=== PATIENT | female | born 2000 | race Caucasian/White ===

== ENCOUNTER 2023-01-04 07:26 | Outpatient (CLI) | payer OTHER, SELFPAY ==
--- NOTE | ~2023-01-04 | US_ITS ---
EXAMINATION: US OB /maternal detail DATE: 01/04/2023 08:52 INDICATION: anatomic survey. TECHNIQUE: Real-time ultrasound of the pelvis was performed. COMPARISON: None. FINDINGS: There is a single living fetus in vertex presentation. The placenta is posterior, 7.8 cm from the ce rvix. heart rate is 147 beats per minute (bpm). The amniotic fluid volume is subjectively mayra l. The cervical length is 3.8 cm on transabdominal images, which is normal. The following biometric data were obtained: Biparietal diameter (BPD): 4.8 cm; head circumference (HC): 17.1 cm; abdominal circumference (AC): 13 .9 cm; femur length (FL): 2.8 cm. These measurements are concordant. Estimated weight is 270 g +/- 40 g, which correlates with the 73rd percentile when 06/03/23 is u sed as estimated date of delivery. As single measurements, these parameters are each equal to the following estimated gestational ages: BPD: 20 weeks 3 days. HC: 19 weeks 5 days. AC: 19 weeks 2 days. FL: 18 weeks 3 days. estimated gestational age based solely on measurements from this exam is 19 weeks 3 days +/- 1 weeks 3 days. The cerebral ventricles, cerebellum, cisterna magna, nuchal fold, lip, and visualized portions of the spine are normal. The heart is normal. The diaphragm, stomach, kidneys, and bladder are normal. Ther e are two umbilical arteries to yield a 3-vessel cord. The cord insertion is normal. IMPRESSION: 1. Single living fetus in vertex presentation. 2. Estimated weight is 270 g +/- 40 g, which correlates with the 73rd percentile when 06/03/23 is used as estimated date of delivery. 3. Normal anatomic survey. Reviewed, dictated and finalized at location A. IMPRESSION: 1. Single living fetus in vertex presentation. 2. Estimated weight is 270 g +/- 40 g, which correlates with the 73rd pe rcentile when 06/03/23 is used as estimated date of delivery. 3. Normal anatomic survey.
== END 2023-01-04 07:27 ==
PROVIDERS: PCP Advanced Practice Midwife; Visit Provider Advanced Practice Midwife
DX: Z36.9 Encounter for antenatal screening, unspecified (principal)
CPT/HCPCS: 76805

== ENCOUNTER 2023-04-08 08:30 | Outpatient (CLI) | payer OTHER, SELFPAY ==
[2023-04-08] VITALS (8 sets, daily range): BP systolic 115–129; BP diastolic 64–79; PULSE 66–85
[2023-04-08 09:08] LABS: Basophils Percent Auto 0.2 % (0.2-1.2); Eosinophils Absolute Auto 0.1 K/mm3 (0-0.3); Eosinophils Percent Auto 1.1 % (0-4.4); Hematocrit 31.9 % (37.0-47.0); Hemoglobin 10.8 g/dL (12.0-15.0); Immature Granulocyte Absolute 0.04 K/mm3 (0.00-0.031); Immature Granulocyte Percent A 0.4 % (0-0.5); Lymphocytes Absolute Auto 0.82 K/mm3 (0.9-3.2); Lymphocytes Percent Auto 8.8 % (18.3-44.2); Mean Corpuscular HGB Conc 33.9 g/dl (32-36); Mean Corpuscular Hemoglobin 29.8 pg (26-34); Mean Corpuscular Volume 88.1 fl (80-100); Mean Platelet Volume 10.1 fl (7.4-10.4); Monocytes Absolute Auto 0.5 K/mm3 (0.1-0.6); Monocytes Percent Auto 5.7 % (2.6-8.5); Neutrophils Absolute Auto 7.8 K/mm3 (1.3-6.7); Neutrophils Percent Auto 83.8 % (45.5-73.1); Platelet Count Result 157 k/mm3 (150-375); Red Blood Count 3.62 M/mm3 (4.2-5.4); Red Cell Distribution Width 13.4 % (11.5-14.5); White Blood Count 9.4 K/mm3 (4.5-10.0)
[2023-04-08 09:20] LABS: Alanine Aminotransferase 29 U/L (6-35); Albumin Level 3.6 g/dL (3.5-5.1); Alkaline Phosphatase 87 U/L (38-126); Anion Gap 5 mmol/L (8-16); Aspartate Amino Transferase 25 U/L (14-36); Bilirubin,Total 0.4 mg/dL (0.2-1.3); Blood Urea Nitrogen 6 mg/dL (7-17); Calcium 8.6 mg/dL (8.4-10.2); Carbon Dioxide 23 mmol/L (22-30); Chloride 106 mmol/L (98-107); Estimated Glomerular Filt Rate > 60; Glucose 98 mg/dL (65-110); Potassium 3.4 mmol/L (3.4-5.0); Sodium 134 mmol/L (137-145); Uric Acid 3.7 mg/dL (2.5-7.5)
[2023-04-08 09:46] LABS: Appearance Urine Clear (Clear); Bilirubin Urine Negative (Negative); Blood Urine Negative (Negative); Color Urine Light Yellow (Yellow); Glucose Urine UA Negative (Negative); Ketones Urine Negative (Negative); Leukocyte Esterase Ur Trace LEU/UL (NEGATIVE); Nitrate Urine Negative (Negative); Protein Urine Negative (Negative); Specific Grav Ur <= 1.005 (1.001-1.035); Urobilinogen Urine 0.2 mg/dL (<2.0); pH Urine 5.5 (5.0-9.0)
[2023-04-08 10:07] LABS: Creatinine Urine 12.5 mg/dL; Total Protein Urine Random 16 mg/dL; Ur Ttl Prot Creatinine Ratio 1.28 mg/mg (0-0.20)
[2023-04-08 10:15] LABS: Bacteria Urine None Seen /hpf; Need Manual Microscopic Reviewed; Non Pathogenic Casts 0-2; RBC Urine 0-2 /hpf (0-2); Squamous Epithelial Cell Urine Moderate /hpf (Few)
[2023-04-08 10:28] LABS: Add Urine Microscopic? YES
== END 2023-04-08 10:40 | disposition home or self-care (01) ==
LOC: ANHOBOP 08:41 → ANHOBPP 08:42
PROVIDERS: Visit Provider Obstetrics & Gynecology Gynecology
DX: O13.9 Gestational [pregnancy-induced] hypertension without significant proteinuria, unspecified trimester (principal); Z3A.00 Weeks of gestation of pregnancy not specified
CPT/HCPCS: 36415; 59025; 80053; 81001; 82570; 84156; 84550; 85025; 87086; 99199

== ENCOUNTER 2023-04-09 12:13 | Outpatient (CLI) | payer OTHER, SELFPAY ==
[2023-04-09 12:13] VITALS: BMI 31.3
[2023-04-09 12:58] LABS: Collection Time Urine 24 HOURS
[2023-04-09 13:04] LABS: Total Volume 24 Hour Urine 3700 ml
[2023-04-09 13:05] LABS: Specific Gravity Ur 1.015; Total Volume 24 Hour Urine 3700 ml
[2023-04-09 13:07] LABS: Creatinine Clearance Urine 164.2 ml/min (75-125); Creatinine Urine 43.6 mg/dL; Patient Weight 194 Lbs
[2023-04-09 13:12] LABS: Total Protein Urine 24 Hr 629 mg/24hr (28-141); Total Protein Urine Random 17 mg/dL
== END 2023-04-09 12:14 | disposition home or self-care (01) ==
LOC: ANHOBOP 12:20
PROVIDERS: Visit Provider Obstetrics & Gynecology Gynecology
DX: O26.899 Other specified pregnancy related conditions, unspecified trimester (principal); R03.0 Elevated blood-pressure reading, without diagnosis of hypertension
CPT/HCPCS: 81050; 82575; 84156

== ENCOUNTER → 2023-04-11 13:16 | Outpatient (CLI) | payer OTHER, SELFPAY ==
--- NOTE | ~2023-04-11 | US_ITS ---
EXAMINATION: US OB follow up DATE: 04/11/2023 14:04 INDICATION: Preeclampsia TECHNIQUE: Real-time transabdominal obstetric ultrasound. FINDINGS: Comparison ultrasound dated 01/04/2023 There is a single living fetus in vertex presentation. The placenta is posterior/fundal without plac enta previa. cardiac activity and movement is noted with a heart rate of 132 beats per minute. T he amniotic fluid volume is normal. MARTELL measures 18.2 cm. The following biometric data were obtained: BPD: 84mm corresponds to gestational age 33 weeks 6 days. Head circumference: 302mm corresponds to gestational age 33 weeks 4 days. Abdominal circumference: 292mm corresponds to gestational age 33 weeks 1 days. Femur length: 62mm corresponds to gestational age 31 weeks 6 days. Estimated weight: 2075grams +/- 311grams, 30%.] IMPRESSION: 1. Single living intrauterine in vertex presentation with an estimated gestational age of 33 weeks 2 days by inititial ultrasound. Appropriate interval growth. 2. Normal placenta. Reviewed, dictated and finalized at location A. IMPRESSION: 1. Single living intrauterine in vertex presentation with an estimat ed gestational age of 33 weeks 2 days by inititial ultrasound. Appropriate int erval growth. 2. Normal placenta.
== END ==
PROVIDERS: PCP Obstetrics & Gynecology Gynecology; Visit Provider Obstetrics & Gynecology Gynecology
DX: O14.03 Mild to moderate pre-eclampsia, third trimester (principal); Z3A.33 33 weeks gestation of pregnancy
CPT/HCPCS: 76816

== ENCOUNTER 2023-04-25 08:24 | Outpatient (RCR) | payer OTHER, SELFPAY ==
[2023-04-22 11:02] VITALS: BP 120/70; PULSE 77
--- NOTE | ~2023-04-25 | US_ITS ---
EXAMINATION: US OB limited w BPP DATE: 04/22/2023 10:46 CDT INDICATION: Biophysical profile. Evaluate well-being. TECHNIQUE: Real-time transabdominal obstetric ultrasound. FINDINGS: No prior studies for comparison. There is a single living fetus in vertex presentation. The placenta is posterior without placenta pr evia. cardiac activity and movement is noted with a heart rate of 139 beats per minute. Biophysical profile: breathin of 2 movement: 2 of 2 tone: 2 of 2 Amniotic flud pocket: 2 of 2 Total score: 8 of 8 IMPRESSION: 1. Single living intrauterine in vertex presentation. 2: Total biophysical profile score of 8/8. Reviewed, dictated and finalized at location L.
--- NOTE | ~2023-04-25 | US_ITS ---
EXAMINATION: US OB limited w BPP, US umbilical doppler DATE: 04/25/2023 11:30 CDT INDICATION: decelerations. TECHNIQUE: Real-time transabdominal obstetric ultrasound. FINDINGS: No prior studies for comparison. There is a single living fetus in vertex presentation. The placenta is fundal/posterior without plac enta previa. cardiac activity and movement is noted with a heart rate of 141 beats per minute. Biophysical profile: breathin of 2 movement: 2 of 2 tone: 2 of 2 Amniotic flud pocket: 2 of 2 Total score: 8 of 8 Umbilical artery pulsed Doppler demonstrates peak systolic to end-diastolic velocity ratios (S/D rati os) 2.5 (5th percentile = 2.0, 95th percentile = 3.4). IMPRESSION: 1. Single living intrauterine in vertex presentation. 2: Total biophysical profile score of 8/8. 3: Normal umbilical Doppler ratios. Reviewed, dictated and finalized at location B. IMPRESSION: 1. Single living intrauterine in vertex presentation. 2: Total biophysical profile score of 8/8. 3: Normal umbilical Doppler ratios.
[2023-04-25 11:48] VITALS: BP 137/84; PULSE 84
== END 2023-05-15 11:32 | disposition home or self-care (01) ==
LOC: ANHOBOP 08:24
PROVIDERS: PCP Obstetrics & Gynecology Gynecology; Visit Provider Obstetrics & Gynecology Gynecology
DX: O26.893 Other specified pregnancy related conditions, third trimester (principal); Z3A.34 34 weeks gestation of pregnancy; O14.93 Unspecified pre-eclampsia, third trimester; Z3A.35 35 weeks gestation of pregnancy
CPT/HCPCS: 59025; 76815; 76819; 76820

== ENCOUNTER 2023-05-01 10:15 | Outpatient (CLI) | payer OTHER, SELFPAY ==
--- NOTE | ~2023-05-01 | US_ITS ---
EXAMINATION: US OB follow up DATE: 05/01/2023 10:43 INDICATION: Preeclampsia, third trimester TECHNIQUE: Real-time ultrasound of the pelvis was performed. The interpreting radiologist was not pre sent for the study. COMPARISON: 04/25/2023 FINDINGS: There is a single living fetus in vertex presentation. The placenta is posterior/fundal. Th e measured cervical length is 4.4 cm. cardiac activity and movement are noted. hear t rate is 136 beats per minute (bpm). The amniotic fluid index is 14.4 cm which is normal (normal ran ge: 7.7 cm to 24.9 cm). The following biometric data were obtained: Biparietal diameter (BPD): 8.9 cm; head circumference (HC): 33.4 cm; abdominal circumference (AC): 32 .8 cm; femur length (FL): 6.9 cm. These measurements are concordant. Estimated weight is 2962 g +/- 244 g, which correlates with the 63rd percentile when 05/28/2023 is used as estimated date of delivery. As single measurements, these parameters are each equal to the following estimated gestational ages w ith ranges of +/- 2 standard deviations: BPD: 36 weeks 2 days ( 33 weeks 1 days - 39 weeks 3 days). HC: 38 weeks 1 days ( 35 weeks 3 days - 40 weeks 6 days). AC: 36 weeks 5 days ( 33 weeks 5 days - 39 weeks 5 days). FL: 35 weeks 4 days ( 32 weeks 4 days - 38 weeks 4 days). estimated gestational age based solely on measurements from this exam is 36 weeks 5 days +/- 2 weeks 4 days. IMPRESSION: 1. Single living fetus in vertex presentation. 2. Normal amniotic fluid index. 3. Estimated weight is 2962 g +/- 244 g, which correlates with the 63rd percentile when 023 is used as estimated date of delivery. Reviewed, dictated and finalized at location A. IMPRESSION: 1. Single living fetus in vertex presentation. 2. Normal amniotic fluid index. 3. Estimated weight is 2962 g +/- 244 g, which correlates with the 63rd p ercentile when 05/28/2023 is used as estimated date of delivery.
== END 2023-05-01 10:16 ==
PROVIDERS: PCP Advanced Practice Midwife; Visit Provider Advanced Practice Midwife
DX: O14.03 Mild to moderate pre-eclampsia, third trimester (principal); Z3A.36 36 weeks gestation of pregnancy
CPT/HCPCS: 76816

== ENCOUNTER 2023-05-13 18:59 | Inpatient (IN) | payer OTHER, SELFPAY ==
[2023-05-13] VITALS (15 sets, daily range): BP systolic 119–146; BP diastolic 75–92; PULSE 72–97; TEMP 36.6
[2023-05-13 19:49] LABS: Basophils Percent Auto 0.3 % (0.2-1.2); Eosinophils Absolute Auto 0.1 K/mm3 (0-0.3); Eosinophils Percent Auto 0.6 % (0-4.4); Hematocrit 33.6 % (37.0-47.0); Hemoglobin 11.6 g/dL (12.0-15.0); Immature Granulocyte Absolute 0.05 K/mm3 (0.00-0.031); Immature Granulocyte Percent A 0.5 % (0-0.5); Lymphocytes Absolute Auto 1.31 K/mm3 (0.9-3.2); Lymphocytes Percent Auto 12.6 % (18.3-44.2); Mean Corpuscular HGB Conc 34.5 g/dl (32-36); Mean Corpuscular Hemoglobin 29.3 pg (26-34); Mean Corpuscular Volume 84.8 fl (80-100); Mean Platelet Volume 10.9 fl (7.4-10.4); Monocytes Absolute Auto 0.7 K/mm3 (0.1-0.6); Monocytes Percent Auto 6.9 % (2.6-8.5); Neutrophils Absolute Auto 8.2 K/mm3 (1.3-6.7); Neutrophils Percent Auto 79.1 % (45.5-73.1); Platelet Count Result 184 k/mm3 (150-375); Red Blood Count 3.96 M/mm3 (4.2-5.4); Red Cell Distribution Width 13.6 % (11.5-14.5); White Blood Count 10.4 K/mm3 (4.5-10.0)
--- NOTE | 2023-05-13 19:49 | OBPPTRN ---
Patient transferred to post room # via ( ). Support person present. Oriented to unit, room, information board, rooming in, admission packet and security measures. Patient verbalizes understanding.
[2023-05-13 20:02] LABS: Alanine Aminotransferase 29 U/L (6-35); Albumin Level 4.1 g/dL (3.5-5.1); Alkaline Phosphatase 99 U/L (38-126); Anion Gap 11 mmol/L (8-16); Aspartate Amino Transferase 24 U/L (14-36); Bilirubin,Total 0.4 mg/dL (0.2-1.3); Blood Urea Nitrogen 10 mg/dL (7-17); Carbon Dioxide 21 mmol/L (22-30); Chloride 105 mmol/L (98-107); Estimated Glomerular Filt Rate > 60; Glucose 92 mg/dL (65-110); Potassium 3.5 mmol/L (3.4-5.0); Sodium 137 mmol/L (137-145); Uric Acid 5.3 mg/dL (2.5-7.5)
[2023-05-13] MEDS: miSOPROStol 25 MCG TABLET SUBLINGUAL (20:43)
[2023-05-14] VITALS (196 sets, daily range): BP systolic 95–160; BP diastolic 51–128; PULSE 25–191; RESP 18; TEMP 36.5–38.1; O2SAT 75–100
[2023-05-14] MEDS: miSOPROStol 25 MCG TABLET SUBLINGUAL (00:57)
[2023-05-14] MEDS: LACTATED RINGERS 1,000 ML 125 ML IV CONT ×4 (05:00→18:07)
[2023-05-14] MEDS: OXYTOCIN 30 UNITS/NS 500 ML 30 UNITS/500 ML BAG IV CONT (05:02)
--- NOTE | 2023-05-14 07:13 | WPDOBADMIT ---
Obstetrics - Admit Note Admission Note: record reviewed. No pertinent additions to the history and/or any subsequent changes in the physical findings that are not consistent with the expected course of the were found. Additions to the history and/or subsequent changes in the physical findings follow. None.
--- NOTE | 2023-05-14 07:13 | PM.OBPNLAB ---
Pain Control Date/time seen: 05/14/23 07:05 Pain control: tolerating well Comments: feeling occasional contractions q 5-10 minutes. Pelvic Exam Dilation (cm): 3 Effacement (%): 50 station: -3 Amniotic membrane status: Intact Comments: head well applied to cervix Contractions Monitor mode: External Contraction pattern: Irregular Contraction intensity: Moderate (mild/mod) Status status: Category ll Comments: Baseline 135, mod variability, + accelerations. Variable deceleration. Reassuring tracing. Assessment and Plan Pitocin rate (mU/min): 6 Assessment: induction ongoing Comments: CNM to bedside. Discussed plan of care an option for amniotomy. Discussed risks, benefits, and expectations of breaking water. Patient is agreeable. Amniotomy performed and there was a moderate return of clear amniotic fluid. Patient tolerated procedure well. Will start Ampicillin for GBS prophylaxis given unknown status at this time. All BPs normal to mild range, CBC/CMP stable. Vernell does report a headache but states she did not sleep much last night. She is drinking some caffeinated soda. Recommend Tylenol if FELICIANO unrelieved. No visual changes, RUQ pain, or change in edema. Anticipate vaginal . Dr. Cam updated.
[2023-05-14] MEDS: AMPICILLIN 2 GM/NS 100 ML 2 GM/100 ML BAG IVPB (07:37)
[2023-05-14] MEDS: fentaNYL CITRATE INJ (*CRX) 100 MCG/2 ML VIAL 50 MCG IV PUSH ×2 (08:44→09:16)
--- NOTE | 2023-05-14 09:47 | WPDANESEPP ---
Anes - Eval Pre Procedure Procedure: Labor Epidural Date/Time: 05/14/23 09:47 Surgeon: Dorina Preop Diagnosis: Labor Pain Pre Op Diagnosis: IOL Patient Data Age: 23 Gender: F Height: Weight: Last Vital Signs Temp 36.6 C 05/14/23 08:30 Pulse 73 05/14/23 09:45 BP 131/77 05/14/23 09:45 Pulse Ox 100 05/14/23 09:45 Allergies Allergy/AdvReac Type Severity Reaction Status Date / Time No Known Allergies Allergy Verified 05/06/23 14:32 Home Medications Medication Instructions Recorded Confirmed Type calcium-magnesium 217 mg-117 mg 2 tablet PO DAILY 04/08/23 05/06/23 History tablet ferrous sulfate 27 mg iron tablet 27 mg PO TID 04/08/23 05/06/23 History vit no.133-ferrous 1 tablet PO DAILY 04/08/23 05/06/23 History fumarate 28 mg-folic acid 800 mcg tablet () aspirin 81 mg chewable tablet 81 mg PO DAILY 04/25/23 05/06/23 History ergocalciferol (vitamin D2) 1,250 50,000 unit PO WEEKLY 04/25/23 05/06/23 History mcg (50,000 unit) capsule Laboratory Tests 05/13/23 19:27 WBC 10.4 H K/mm3 (4.5-10.0) RBC 3.96 L M/mm3 (4.2-5.4) Hgb 11.6 L g/dL (12.0-15.0) Hct 33.6 L % (37.0-47.0) MCV 84.8 fl (80-100) MCH 29.3 pg (26-34) MCHC 34.5 g/dl (32-36) RDW 13.6 % (11.5-14.5) Plt Count 184 k/mm3 (150-375) MPV 10.9 H fl (7.4-10.4) Immature Gran % (Auto) 0.5 % (0-0.5) Neut % (Auto) 79.1 H % (45.5-73.1) Lymph % (Auto) 12.6 L % (18.3-44.2) [place] % (Auto) 6.9 % (2.6-8.5) Eos % (Auto) 0.6 % (0-4.4) Baso % (Auto) 0.3 % (0.2-1.2) Lymph # (Auto) 1.31 K/mm3 (0.9-3.2) [place] # (Auto) 0.7 H K/mm3 (0.1-0.6) Eos # (Auto) 0.1 K/mm3 (0-0.3) Baso # (Auto) 0.0 K/mm3 (0.0-0.1) Abs Immat Gran (auto) 0.05 H K/mm3 (0.00-0.031) Absolute Neuts (auto) 8.2 H K/mm3 (1.3-6.7) Absolute Nucleated RBC 0.0 K/mm3 (0.0-0.012) Nucleated RBC % 0.0 % (0.0-0.2) Sodium 137 mmol/L (137-145) Potassium 3.5 mmol/L (3.4-5.0) Chloride 105 mmol/L (98-107) Carbon Dioxide 21 L mmol/L (22-30) Anion Gap 11 mmol/L (8-16) BUN 10 mg/dL (7-17) Creatinine 0.70 mg/dL (0.7-1.0) Estim Creat Clear Calc Not Reportable Estimated GFR > 60 (59 - ) Glucose 92 mg/dL (65-110) Uric Acid 5.3 mg/dL (2.5-7.5) Calcium 10.0 mg/dL (8.4-10.2) Total Bilirubin 0.4 mg/dL (0.2-1.3) AST 24 U/L (14-36) ALT 29 U/L (6-35) Alkaline Phosphatase 99 U/L (38-126) Total Protein 8.0 g/dL (6.3-8.2) Albumin 4.1 g/dL (3.5-5.1) RPR Pending Blood Type O Positive Antibody Screen Negative : gestational age ([place] 06/03/23) Patient hx anesthesia problems: none Family hx anesthesia problems: none Results Review: All pre-operative results and documents have been reviewed as part of the pre-operative evaluation. [facility] Family History Family History Other Unknown family medical history Social History Social History Smoking status: Never smoker Substance use: never Lack of Transportation: No Lack of Food: Never True Current Housing: I Have Housing Concerned About Future Housing: No Difficulty Paying Gas/Electric Bills: No Difficulty Paying for Meds: No Currently Unemployed: No Education: Associate Degree Difficulty w/ Childcare or Family Care: No Spiritual care concerns: No Exam Day of Procedure 05/14/23 09:47 Patient weight: normal Heart: regular rate and rhythm Lungs: normal air movement Airway: Mallampati scale class II Neurological: alert and oriented
[2023-05-14] MEDS: ONDANSETRON INJ 4 MG/2 ML VIAL IV PUSH (13:38)
[2023-05-14 14:39] LABS: Rapid Plasma Reagin Non-Reactive (NonReactive)
--- NOTE | 2023-05-14 17:39 | PM.OBPNLAB ---
Pain Control Date/time seen: 05/14/23 17:35 Pain control: tolerating well and epidural Comments: feeling some rectal pressure. Pelvic Exam Dilation (cm): 10 Effacement (%): 100 station: +2 Amniotic membrane status: Ruptured Contractions Monitor mode: Internal Contraction pattern: Irregular Contraction intensity: Moderate (mild/mod) Status status: Category ll Comments: 130 baseline, moderate variability Assessment and Plan Comments: Plan to begin pushing with contractions.
--- NOTE | 2023-05-14 19:11 | P.PCNOB_ITS ---
OB - Vaginal Delivery Note Procedure Delivery date: 05/14/23 Events: Preeclampsia w/o severe features Induction method: Per Misoprostol Protocol Delivery augmentation: Rupture of Membranes Delivery monitor: External FHT and Internal Uterine Route of delivery: Episiotomy description: None Laceration Description: Periurethral and Vaginal Delivery repair: vicryl Specimen: Yes Quantitative Blood Loss (ml): 250 Anesthesia type: Epidural Disposition: Floor Complications: No immediate complications Narrative: Vernell Arrived for induction of labor secondary to preeclampsia. She received 2 doses of Cytotec followed by Pitocin. Amniotomy was performed and she progressed to complete dilation. She pushed very well with contractions and brought the head moved completely removed. After the delivery of the head, a loose nuchal cord was identified. With the next push she easily delivered the anterior and posterior shoulders followed by the remainder of the . The infant was delivered in a somersault maneuver after which the nuchal cord was reduced. The was placed on maternal abdomen and dried and stimulated by the nursery staff. After 1 minute of life, the cord was doubly clamped and cut. Cord blood, cord gases, and cord segment were obtained. There was excellent hemostasis. Uterine tone remained firm, and all delivery counts were correct. Mother and baby skin to skin the delivery room. [place] Baby Date of : 05/14/23 Time of : 18:36 Weeks of gestation at delivery: 37 gender: Male Weight (pounds): 0 (weight not available at the time of this note) presentation: vertex position: Left Occiput Anterior Placenta delivery description: Spontaneous and Normal Configuration Cord Vessel Description: 3 Vessels, Nuchal Cord, Tight and Delayed Cord Clamping score one minute: 8 score five minutes: 9
[2023-05-14] MEDS: OXYTOCIN 30 UNITS/NS 500 ML 30 UNITS/500 ML BAG 125 UNITS IV CONT (19:15)
--- NOTE | 2023-05-14 19:17 | PM.OBDSVD ---
DS: Admitting Diagnosis Discharge Date 05/16/2023 Admitting Diagnosis 23 y.o. at 37 weeks IOL for preeclmapsia anemia DS: Discharge Diagnosis Discharge Diagnosis (1) Preeclampsia: Code(s): O14.90 - Unspecified pre-eclampsia, unspecified trimester Status: Acute (2) (normal spontaneous vaginal delivery): Code(s): O80 - Encounter for full-term uncomplicated delivery Status: Acute (3) Mother currently breast-feeding: Code(s): Z39.1 - Encounter for care and examination of lactating mother Status: Acute OB - DS: Summary Hospital Course Hospital Course: Uncomplicated OB Procedures : NST, PIH Mgmt and Ultrasound OB Procedures Intrapartum: Spontaneous Vag Delivery OB Procedures: : None Peripartum Data Delivery Method: Natural Vaginal Laceration Description: Periurethral and Vaginal Episiotomy description: None complications: none Status at Discharge Functional status at discharge: independent ambulation Overall status at discharge: patient is progressing back to baseline Time Spent with Patient Time attestation: Total time spent providing and/or coordinating discharge services: Exam Narrative: Alert and oriented. Mood is pleasant and cooperative. Perineum with minimal edema. Fundus firm and below umbilicus. Const: General: cooperative, healthy appearing, no acute distress and alert Orientation/consciousness: patient oriented x3 Limitations: no limitations Resp: Effort & Inspection: normal respiratory effort and able to speak in complete sentences Auscultation: clear to auscultation bilaterally Cardio: Rate: regular rate GI: Inspection: normal to inspection Auscultation: normal bowel sounds : General: Yes bladder normal to palpation Bimanual exam- vagina & uterus: bladder normal to palpation OB/external & speculum: vaginal bleeding Other: Fundus firm and below U Skin: General skin exam: normal color and no rashes or lesions noted Neuro: General: patient oriented x3 and moves all extremities Cognition (Neuro): normal cognition Extrem: General: normal to inspection and no calf tenderness Psych: Appearance: grossly normal Mental Status: mental status grossly normal Affect: normal affect Thought process: Normal thought process present DS: Data Data Completed and Pending Labs on day of discharge: Labs from last 24 hours 05/13/23 19:27 WBC 10.4 H RBC 3.96 L Hgb 11.6 L Hct 33.6 L MCV 84.8 MCH 29.3 MCHC 34.5 RDW 13.6 Plt Count 184 MPV 10.9 H Immature Gran % (Auto) 0.5 Neut % (Auto) 79.1 H Lymph % (Auto) 12.6 L [place] % (Auto) 6.9 Eos % (Auto) 0.6 Baso % (Auto) 0.3 Lymph # (Auto) 1.31 [place] # (Auto) 0.7 H Eos # (Auto) 0.1 Baso # (Auto) 0.0 Abs Immat Gran (auto) 0.05 H Absolute Neuts (auto) 8.2 H Absolute Nucleated RBC 0.0 Nucleated RBC % 0.0 Sodium 137 Potassium 3.5 Chloride 105 Carbon Dioxide 21 L Anion Gap 11 BUN 10 Creatinine 0.70 Estim Creat Clear Calc Not Reportable Estimated GFR > 60 Glucose 92 Uric Acid 5.3 Calcium 10.0 Total Bilirubin 0.4 AST 24 ALT 29 Alkaline Phosphatase 99 Total Protein 8.0 Albumin 4.1 RPR Non-reactive Blood Type O Positive Antibody Screen Negative Discharge Plan Discharge Attending physician on discharge: Joyce Cam Discharging Clinician: Veronica Jones Anticipated Discharge Date/Time: 05/16/23 12:00 Patient Disposition: Home, Self-Care Activity: may shower Diet: as tolerated Wound Care Instructions: follow printed instructions Discharge Instructions: Continue taking your vitamin and any other supplements as previously directed (Examples: Iron, Vitamin D). You may take Tylenol 1000mg over the counter every 6 hours as needed for pain. Do not exceed 4000mg of Tylenol daily. You may continue using tucks pads and dermoplast spray if needed for a few more days. Patient I
[2023-05-14] MEDS: IBUPROFEN 600 MG TABLET PO (19:51)
[2023-05-14] MEDS: WITCH HAZEL 40 PADS 1 PAD TOPICAL (20:23)
[2023-05-14] MEDS: ACETAMINOPHEN 325 MG TABLET 650 MG PO (20:23)
[2023-05-14] MEDS: BENZOCAINE 20% AER SPR (*SP) 56 GM CAN 1 SPRAY TOPICAL (20:23)
--- NOTE | 2023-05-14 21:30 | PC.NURSE ---
Patient transferred to post room # [id number] via (W/C). Support person present. Oriented to unit, room, information board, rooming in, admission packet and security measures. Patient verbalizes understanding.
[2023-05-15 05:25] VITALS: BP 136/91; PULSE 81; RESP 16; TEMP 36.6; O2SAT 99
[2023-05-15 07:09] LABS: Hematocrit 28.9 % (37.0-47.0); Hemoglobin 9.6 g/dL (12.0-15.0)
--- NOTE | 2023-05-15 07:37 | P.PNOB_ITS ---
OB - PN: Subj Subjective Date/time seen: 05/15/23 07:37 Interval history: No PIH sx Patient comments: no complaints and pain well controlled [place] baby status: doing well OB - PN: Obj Data Labs 05/15/23 07:04 05/13/23 19:27 Labs: Laboratory Results - last 24 hr 05/13/23 05/15/23 19:27 07:04 Hgb 9.6 L Hct 28.9 L RPR Non-reactive OB - PN A/P Assessment and Plan (1) Preeclampsia: Code(s): O14.90 - Unspecified pre-eclampsia, unspecified trimester Status: Acute Assessment and Plan: VSS with no sx. Continue observation. No diuresis yet. Plan day: 1 Plan: routine care Time Spent With Patient Time: Total time spent is greater than 50% in coordination of care (as documented) at patient's floor/unit and/or counseling patient: Exam : Bimanual exam- vagina & uterus: other (Uterus firm, nt @U)
[2023-05-15] MEDS: POLYSACCHARIDE IRON COMPLEX 150 MG CAPSULE PO ×2 (08:28→17:40)
[2023-05-15] MEDS: IBUPROFEN 600 MG TABLET PO ×2 (08:28→20:33)
[2023-05-15] MEDS: DOCUSATE SODIUM 100 MG CAPSULE PO ×2 (08:28→17:40)
[2023-05-15] MEDS: MULTIVIT/MIN/PREN/FOL AC/IRON TABLET 1 TAB PO (08:28)
[2023-05-15 09:20] VITALS: BP 134/88; PULSE 76; RESP 16; TEMP 36.8; O2SAT 99
--- NOTE | 2023-05-15 10:36 | WPDANLDPN2 ---
Anes-Prog Note L&D Date/Time: 05/15/23 10:36 Comfortable throughout: labor and delivery Neuraxial method: epidural Epidural/Spinal procedure site: clean & non-tender Neuro status: Neuro function grossly intact. Cardiovascular status: normal Respiratory status: normal Airway patency: baseline Mental status: baseline Post-Op hydration status: normal Vital Signs: Last Vital Signs Temp 36.8 C 05/15/23 09:20 Pulse 76 05/15/23 09:20 Resp 16 05/15/23 09:20 BP 134/88 05/15/23 09:20 Pulse Ox 99 05/15/23 09:20 O2 Del Method Room Air 05/14/23 22:58 Pain score (VAS): 07/09 I/O: Intake & Output 05/14/23 05/15/23 05/15/23 23:59 07:59 15:59 Intake Total 1950 550 Output Total 385 Balance 1565 550 Post-procedural complaints: none Patient feedback: Patient satisfied with anesthetic care.
--- NOTE | 2023-05-15 11:15 | PC.NURSE ---
[id number] Introductions were made, then consulted with patient to assess needs related to . Mother led the conversation with her?plans to feed?her infant and the?experience so far. Resources provided for inpatient and outpatient services with the feeding sheet, mom/baby guide and name written on the white board. Parents were encouraged to place infant [id number] once comes back from the nursery. We discussed what that looks like and how to stimulate for waking to feed. Mother voiced understanding of information and will call if there is a request for assistance. Reported to the primary RN. [phone] Patient called for assistance. On assessment the 's tongue is visualized as tight with some forking when extended past the gumline. Mother works well with her infant with encouragement and education. Encouraged understanding of the benefits of skin to skin (demonstrating unwrapping infant and placing upright on her chest), stimulating with massage touch, changing positions to encourage wakefulness, how to watch for early feeding cues, responsive feeding, feeding on demand (aiming for 8-12 times in 24 hours, about every 2-3 hours), milk production, hand expression, building/maintaining a milk supply, duration of feeding, signs of adequate intake/output and how to record on the feeding sheet. 's stool diaper is changed and infant stools again, then placed back [id number]. remains sleepy and reluctant. When feeding cues are visualized we review positioning and ear, shoulder, hip alignment, supporting the breast to facilitate a deep latch, asymmetrical latch (off-center), leading with the chin with a big, open, wide gape and body close to mother. Infant attempts to latch optimally to the right and left breast in football,cross cradle, laid-back position but doesn't maintain and holds the nipple in the mouth or sleeps. Reviewed good handwashing when or touching the breast/nipples to prevent infection and mother demonstrates understanding of hand expression. Infant was spoon fed 5mls of colostrum with lapping of the milk. Mother is a bit stressed with infant not and company coming in. RN encouraged limiting visitors and encouraged to self care, [id number] with infant and practicing when infant demonstrates feeding cues. Resources used to facilitate learning were used with the tool, mom and baby guide. Mother voiced understanding of skin to skin, stimulating with massage touch, responsive feedings, hand expressed colostrum, talking to infant to encourage if it has been 2 -2.5 hours since the start of the last , to call if infant does not latch, or if there is discomfort with . Resources provided for inpatient/outpatient with feeding sheet and the mom/baby guide. Parents voiced understanding of information, demonstrated learning and will call if there is a request for assistance. Reported to the Primary RN.
[2023-05-15 12:27] VITALS: BP 130/75; PULSE 69; RESP 16; TEMP 36.7; O2SAT 97
[2023-05-15 16:20] VITALS: BP 133/71; PULSE 77; RESP 16; TEMP 36.6; O2SAT 100
[2023-05-15] MEDS: ACETAMINOPHEN 325 MG TABLET 650 MG PO (20:33)
[2023-05-15 20:40] VITALS: BP 138/86; PULSE 91; RESP 18; TEMP 36.8; O2SAT 100
[2023-05-16 04:30] VITALS: BP 120/68; PULSE 69; RESP 16; TEMP 36.5; O2SAT 100
[2023-05-16 07:35] VITALS: BP 122/81; PULSE 67; RESP 18; TEMP 36.6; O2SAT 99
--- NOTE | 2023-05-16 08:01 | P.PNOB_ITS ---
OB - PN: Subj Subjective Date/time seen: 05/16/23 0730 Interval history: Doing well. Urinating without difficulty. Denies passing any large clots. Denies dizziness with ambulating. Tolerating po food and fluids. Bonding with . No FELICIANO, visual changes, RUQ pain, or change in edema. Patient comments: pain well controlled and tolerating diet Dubberly baby status: doing well Dubberly feeding status: exclusively breast feeding (Infant not latching well. She is hand expressing and giving baby milk through syringe. ) OB - PN: Obj Data Labs 05/15/23 07:04 05/13/23 19:27 OB - PN A/P Assessment and Plan (1) (normal spontaneous vaginal delivery): Code(s): O80 - Encounter for full-term uncomplicated delivery Status: Acute (2) Mother currently breast-feeding: Code(s): Z39.1 - Encounter for care and examination of lactating mother Status: Acute (3) Preeclampsia: Code(s): O14.90 - Unspecified pre-eclampsia, unspecified trimester Status: Acute (4) At risk for ineffective : Code(s): Z91.89 - Other specified personal risk factors, not elsewhere classified Status: Acute Assessment and Plan: CNM worked with pt and infant x 20 minutes at bedside. weatherization specialist to work with pt today. Plan day: 2 Plan: discharge home Comments: Discussed resources at length. Time Spent With Patient Time: Total time spent is greater than 50% in coordination of care (as documented) at patient's floor/unit and/or counseling patient: Review of Systems Review of Systems: All systems reviewed & are unremarkable except as noted in HPI and below Exam Narrative: Alert and oriented. Mood is pleasant and cooperative. Perineum with minimal edema. Fundus firm and below umbilicus. Const: General: cooperative, healthy appearing, no acute distress and alert Orientation/consciousness: patient oriented x3 Limitations: no limitations Resp: Effort & Inspection: normal respiratory effort and able to speak in complete sentences Auscultation: clear to auscultation bilaterally Cardio: Rate: regular rate GI: Inspection: normal to inspection Auscultation: normal bowel sounds : General: Yes bladder normal to palpation Bimanual exam- vagina & uterus: bladder normal to palpation OB/external & speculum: vaginal bleeding Other: Fundus firm and below U Skin: General skin exam: normal color and no rashes or lesions noted Neuro: General: patient oriented x3 and moves all extremities Cognition (Neuro): normal cognition Extrem: General: normal to inspection and no calf tenderness Psych: Appearance: grossly normal Mental Status: mental status grossly nor mal Affect: normal affect Thought process: Normal thought process present
--- NOTE | 2023-05-16 08:56 | PC.NURSE ---
[id number] Veronica KNOX has been working with parents to attempt infant to the breast. Mother led conversation with her experience with feeding baby so far having hand expressed all night with syringe feeding and attempting at the breast. Mother works well with her infant with encouragement. Encouraged understanding the benefits of skin to skin, stimulating infant to wake to breastfeed, then respond to feeding cues. Reviewed frequencies of feeding 8-12 times in 24 hours (approximately 2-3 hours), duration of feedings, milk production and signs of adequate intake encouraging swallowing at the breast. Reviewed positioning and alignment, supporting breast, off-centered (asymmetrical latch) and leading with the chin with big, open, wide gape. We practiced latching with a nipple shield(N.S.), then attemted to latch without the N.S. Infant latched but would not maintain. Infant latched optimally to the right breast in football position with a few effective sucks and swallows, then stopped. Most latches were shallow related to holding tongue in the middle of his mouth. Education given to mother of how to visualize suck/swallow ratios and listen for drinking at the breast. was not able to maintain latch. Nipple care reviewed with optimal latch, good positioning and using clean hands when feeding her and touching her breast. Resources used to facilitate learning were used from the mom and baby guide. Mother voiced understanding of the education shared, to call for assistance if the does not latch or if there is discomfort with . Nipple shield provided to mother due to ineffective latching. Reviewed good handwashing, cleaning the nipple shield and application. Discussed with mom the nipple shield precautions, possible complications associated with the risks and benefits. Reviewed practicing with a nipple shield, then without and how to protect the milk supply and production. POC is to initiate pumping rather than hand expression at this point to protect the milk supply and continue practicing with infant on tongue placement and optimal latching. [id number] Breast pump provided due to ineffective . Instructions given on cleaning, care, usage, that there should be no pain, pumping schedule for milk production, collection, and storage of human milk. Parents are encouraged to record pumping schedule on the feeding sheet. Patient was assessed for correct placement, flange size, to pump for comfort and nipple stretching/stimulation for adequate milk production every 3 hours (8 times in 24 hours) 1-2 times at night. Mother voiced understanding of the education shared along with mom and baby guide for additional resource information. Reported to the Primary RN.
[2023-05-16] MEDS: POLYSACCHARIDE IRON COMPLEX 150 MG CAPSULE PO (08:57)
[2023-05-16] MEDS: DOCUSATE SODIUM 100 MG CAPSULE PO (08:58)
[2023-05-16] MEDS: IBUPROFEN 600 MG TABLET PO (09:01)
[2023-05-16] MEDS: MULTIVIT/MIN/PREN/FOL AC/IRON TABLET 1 TAB PO (09:01)
--- NOTE | 2023-05-16 09:30 | PC.NURSE ---
[id number] Demonstrated paced bottle feeding with parents. Infant ingested 9mls of colostrum. Demonstrated cleaning and care of the pump parts and encouraged parents to eat breakfast, take a nap, self care and set alarm to practice again 2-3 hours from 0915. Parents voiced understanding of the information. Reported to the Primary RN.
[2023-05-16 11:57] VITALS: BP 129/68; PULSE 75; RESP 16; TEMP 36.8; O2SAT 99
--- NOTE | 2023-05-16 15:10 | PC.NURSE ---
Patient viewed the discharge video Mother & Baby Care, The First Two Weeks . Patient was given the opportunity and encouraged to ask questions. Patient verbalized understanding of information shared and has been given the mother/baby guide for home reference.
[2023-05-19 11:18] VITALS: BP 138/87; PULSE 72; RESP 18; TEMP 37; O2SAT 100
== END 2023-05-16 16:10 | disposition home or self-care (01) | DRG 807 ==
LOC: ANHLDR 05-14 19:19 → ANHOB2 05-14 21:40
PROVIDERS: Advanced Practice Midwife; Admitting Provider Obstetrics & Gynecology Gynecology; Visit Provider Obstetrics & Gynecology Gynecology
DX: O14.04 Mild to moderate pre-eclampsia, complicating childbirth (principal); Z37.0 Single live birth; O69.81X0 Labor and delivery complicated by cord around neck, without compression, not applicable or unspecified; O71.82 Other specified trauma to perineum and vulva; O99.02 Anemia complicating childbirth; D64.9 Anemia, unspecified; Z3A.37 37 weeks gestation of pregnancy
CPT/HCPCS: 36415; 80053; 84550; 85014; 85018; 85025; 86592; 86850; 86900; 86901; 88307; A9270; J0290; J2405; J2590; J2795; J3010; J7120

== ENCOUNTER 2024-06-17 10:07 | Emergency (ER) | payer BC, SELFPAY ==
--- NOTE | ~2024-06-17 | US_ITS ---
Limited Abdominal Sonogram: Real-time sonographic imaging of the right upper quadrant was performed. Clinical History: Abdominal pain Findings: The liver appears normal with no evidence of mass lesion or bile duct dilatation. Main por mariel vein demonstrates normal direction of flow. The gallbladder is well distended, and appears normal with no evidence of gallstone or wall thickening. The common bile duct measures 3 mm. The visualize d pancreas, aorta, and IVC are unremarkable. Impression: No significant abnormality seen. Reviewed, dictated and finalized at location . S REPRESENTATIVE ADDING MACHINES Impression: No significant abnormality seen.
--- NOTE | ~2024-06-17 | CT_ITS ---
EXAMINATION: CT abdomen pelvis w con DATE: 06/17/2024 12:27 INDICATION: Right upper quadrant abdominal pain TECHNIQUE: Computed tomography (CT) of the abdomen and pelvis was performed with 100 mL Omnipaque-350 intravenous contrast. Automated exposure control and iterative reconstruction technique were employe d. The dose-length product was 335.59 mGy-cm. COMPARISON: None FINDINGS: Lung bases are clear. Heart size normal. No pericardial or pleural effusion. Liver, gallbladder, sple en, pancreas, bilateral adrenal glands and kidneys are normal. Bowels including appendix are normal. Bladder, anteverted uterus and bilateral adnexa are unremarkable. No free intraperitoneal gas or flui d. No pathologically enlarged abdominal or pelvic lymphadenopathy. Tiny fat-containing umbilical ana maría ia. Mild bilateral osteitis condensans ilii. IMPRESSION: 1. No acute intra-abdominal/pelvic process. Reviewed, dictated and finalized at location A. AL MERCHANDISER
[2024-06-17 10:08] VITALS: BP 124/66; PULSE 78; RESP 16; TEMP 36.4; O2SAT 100
[2024-06-17 11:08] LABS: BEDSIDEPREGUCG Negative (Negative)
--- NOTE | 2024-06-17 11:24 | ED.ABDPAIN ---
HPI - Abdominal Pain General Chief Complaint: Abdominal Pain Stated Complaint: RUQ pain Time Seen by Provider: 06/17/24 10:55 Source: patient Mode of arrival: ambulatory Limitations: no limitations History of Present Illness HPI narrative: patient is a 24-year-old female who presents the ED with report of right upper quadrant abdominal pain. Patient reports having persistent right upper quadrant abdominal pain since around 630 this morning. States pain has been a constant dull pain with intermittent sharp stabbing pains. Reported intermittent nausea, denies vomiting. Feels constipated and bloated, but did have a small bowel movement this morning. Denies fevers, urinary complaints. Patient reported having similar symptoms around 1 year ago while she was . They thought this was related to her gallbladder at that time, but she never underwent imaging for this. Related Data Home Medications ?Medication ?Instructions ?Recorded ?Confirmed ?Last Taken ?Type ferrous sulfate 27 mg iron tablet 27 mg PO TID 04/08/23 05/06/23 1 Day Ago History ~05/05/23 vit no.133-ferrous 1 tablet PO DAILY 04/08/23 05/06/23 1 Day Ago History fumarate 28 mg-folic acid 800 mcg ~05/05/23 tablet () ergocalciferol (vitamin D2) 1,250 50,000 unit PO WEEKLY 04/25/23 05/06/23 05/06/23 11:00 History mcg (50,000 unit) capsule Allergies Allergy/AdvReac Type Severity Reaction Status Date / Time No Known Allergies Allergy Verified 05/06/23 14:32 Review of Systems Review of Systems: All systems reviewed & are unremarkable except as noted in HPI. All systems reviewed & are unremarkable except as noted in HPI and below PMFSH Family History Family History Other Unknown family medical history Social History Social History Smoking status: Never smoker Substance use: never Lack of Transportation: No Lack of Food: Never True Current Housing: I Have Housing Concerned About Future Housing: No Difficulty Paying Gas/Electric Bills: No Difficulty Paying for Meds: No Currently Unemployed: No Education: Associate Degree Difficulty w/ Childcare or Family Care: No Spiritual care concerns: No Exam Narrative: GENERAL: Well appearing, well-nourished, non-toxic, in no acute distress. HEAD: Normocephalic, atraumatic. RESPIRATORY: Airway patent, respirations nonlabored. Clear to auscultation bilaterally, no rales, rhonchi, wheezing. CARDIOVASCULAR: Regular rate and rhythm without murmurs, rubs, or gallops. ABDOMINAL: Soft, mild tenderness palpation in right upper quadrant, no rebound, nondistended. Normoactive BS. MUSCULOSKELETAL: Moves all extremities. No gross deformities. SKIN: Warm, dry, normal color. NEURO: A&O X3. Speech clear. Cranial nerves II-XII grossly intact. Steady gait. No ataxic movements. PSYCHIATRIC: Appropriate mood and affect. Normal interaction. Course Vital Signs Vital signs: Vital Signs Temperature 97.6 F 06/17/24 10:08 Pulse Rate 78 06/17/24 10:08 Respiratory Rate 16 06/17/24 10:08 Blood Pressure 124/66 06/17/24 10:08 Pulse Oximetry 100 06/17/24 10:08 Temperature 97.6 F 06/17/24 10:08 Pulse Rate 84 06/17/24 15:13 Respiratory Rate 16 06/17/24 15:13 Blood Pressure 124/84 06/17/24 15:13 Pulse Oximetry 99 06/17/24 15:13 MDM - Abdominal Pain MDM Narrative Medical decision making narrative: patient presented to ED with onset of right upper quadrant abdominal pain that began around 6:30 a.m. this morning. History of similar pain last year while . Vital signs are stable. Patient in no acute distress. Afebrile. Laboratory studies are unremarkable. No leukocytosis. Stable H&H. Normal electrolytes and kidney function. Normal LFTs and lipase. UA is clear. UPT negative. Patient denies any respiratory complaints. Denies cough or significant shortness of breath. PERC negative, low suspicion for PE. CT scan of abdomen/ pelvis was obtained and unremarkable. Stated that gallbladder appeared normal. Bowels and appendix are normal. Will obtain right upper quadrant ultrasound to further evaluate and rule out cholelithiasis, as this is my suspicion. RUQ US negative. No obvious evidence of cholelithiasis. Discussed lab and imaging findings with patient. She has remained stable throughout ED stay. She has not required anything for pain. Reports pain is very mild at this time. Discussed possibility of needing HIDA scan. Will refer to General surgery. Recommended she continue Tylenol/ibuprofen as needed for pain. Given strict return precautions. She agrees with plan and feels comfortable discharge home. Discharged in stable condition. Medical Records Attestation: I reviewed the patient's medical records. Lab Data Attestation: I reviewed the patient's lab results. 06/17/24 11:44 06/17/24 11:44 Labs: Lab Results 06/17/24 06/17/24 06/17/24 Range/Units 11:05 11:44 11:45 WBC 4.8 (4.5-10.0) K/mm3 RBC 4.97 (4.2-5.4) M/mm3 Hgb 14.2 D (12.0-15.0) g/dL Hct 42.2 (37.0-47.0) % MCV 84.9 (80-100) fl MCH 28.6 (26-34) pg MCHC 33.6 (32-36) g/dl RDW 13.0 (11.5-14.5) % Plt Count 231 (150-375) k/mm3 MPV 10.7 H (7.4-10.4) fl Immature Gran % (Auto) 0.2 (0-0.5) % Neut % (Auto) 62.1 (45.5-73.1) % Lymph % (Auto) 25.7 (18.3-44.2) % [place] % (Auto) 9.5 H (2.6-8.5) % Eos % (Auto) 1.9 (0-4.4) % Baso % (Auto) 0.6 (0.2-1.2) % Lymph # (Auto) 1.22 (0.9-3.2) K/mm3 [place] # (Auto) 0.5 (0.1-0.6) K/mm3 Eos # (Auto) 0.1 (0-0.3) K/mm3 Baso # (Auto) 0.0 (0.0-0.1) K/mm3 Abs Immat Gran (auto) 0.01 (0.00-0.031) K/mm3 Absolute Neuts (auto) 3.0 (1.3-6.7) K/mm3 Absolute Nucleated RBC 0.000 (0.0-0.012) K/mm3 Nucleated RBC % 0.0 (0.0-0.2) % Sodium 139 (137-145) mmol/L Potassium 4.0 (3.4-5.0) mmol/L Chloride 108 H (98-107) mmol/L Carbon Dioxide 26 (22-30) mmol/L Anion Gap 5 (4-12) mmol/L BUN 14 (7-17) mg/dL Creatinine 0.80 (0.7-1.0) mg/dL Estim Creat Clear Calc 90 ml/min Estimated GFR > 60 (59 - ) Glucose 83 (65-110) mg/dL Calcium 9.4 (8.4-10.2) mg/dL Total Bilirubin 0.7 (0.2-1.3) mg/dL AST 28 (14-36) U/L ALT 26 (6-35) U/L Alkaline Phosphatase 100 (38-126) U/L Total Protein 8.0 (6.3-8.2) g/dL Albumin 4.9 (3.5-5.1) g/dL Lipase 71 (23-300) U/L Urine Color Yellow (Yellow) Urine Appearance Clear (Clear) Urine pH 7.5 (5.0-9.0) Ur Specific [place] 1.006 (1.001-1.035) Urine Protein Negative (Negative) mg/dL Urine Glucose (UA) Negative (Negative) mg/dL Urine Ketones Negative (Negative) mg/dL Ur Blood (Man) Negative (Negative) Urine Nitrate Negative (Negative) Urine Bilirubin Negative (Negative) Urine Urobilinogen 0.2 (<2.0) mg/dL Leukocyte Esterase Rfl Negative (Negative) COCO/UL POC Urine HCG, Qual Negative (Negative) Imaging Data Attestation: I personally reviewed and interpreted this imaging study as follows: Radiologist's impression: ITS Impressions Abdomen/Pelvis CT 06/17/24 12:55 IMPRESSION: 1. No acute intra-abdominal/pelvic process. Abdomen Ultrasound 06/17/24 14:15 Impression: No significant abnormality seen. Discharge Plan Discharge Clinical Impression: Right upper quadrant abdominal pain Patient Disposition: Home, Self-Care Condition: Stable Instructions: Antibiotic Form, Biliary Colic (ED), Gallstones (ED), Low Fat Diet (ED) Additional Instructions: Your workup here was reassuring. Your pain may be related to gallstones even though your imaging was normal. Recommend following low-fat diet, continue Tylenol and ibuprofen as needed for pain. Follow-up with general surgery and your primary care doctor for further evaluation. Call office to make appointments. Return to the ED if you experience worsening or severe pain, unable to keep down food or drink, persistent fevers, difficulty breathing, or any other symptoms of concern. Patient Language: Italian Prescriptions: No Action ferrous sulfate 27 mg iron Tablet 27 mg PO TID 28-800 mg-mcg Tablet 1 tablet PO DAILY ergocalciferol (vitamin D2) 1,250 mcg (50,000 unit) capsule 50,000 unit PO WEEKLY Rx Instructions: Only takes 3 times a month docusate sodium 100 mg Capsule 100 mg PO BID PRN (Reason: Constipation) Qty: 60 0RF ibuprofen 600 mg Tablet 600 mg PO Q6H PRN (Reason: Cramping) Qty: 30 0RF Follow-up/Referrals: Connor Neville MD [Physician] - (GENERAL SURGERY) PHYSICIAN,RESEARCH QUALITY ASSURANCE SPECIALIST [Non-Staff] - Time of Disposition: 14:21
[2024-06-17 11:58] LABS: Basophils Percent Auto 0.6 % (0.2-1.2); Eosinophils Absolute Auto 0.1 K/mm3 (0-0.3); Eosinophils Percent Auto 1.9 % (0-4.4); Hematocrit 42.2 % (37.0-47.0); Hemoglobin 14.2 g/dL (12.0-15.0); Immature Granulocyte Absolute 0.01 K/mm3 (0.00-0.031); Immature Granulocyte Percent A 0.2 % (0-0.5); Lymphocytes Absolute Auto 1.22 K/mm3 (0.9-3.2); Lymphocytes Percent Auto 25.7 % (18.3-44.2); Mean Corpuscular HGB Conc 33.6 g/dl (32-36); Mean Corpuscular Hemoglobin 28.6 pg (26-34); Mean Corpuscular Volume 84.9 fl (80-100); Mean Platelet Volume 10.7 fl (7.4-10.4); Monocytes Absolute Auto 0.5 K/mm3 (0.1-0.6); Monocytes Percent Auto 9.5 % (2.6-8.5); Neutrophils Percent Auto 62.1 % (45.5-73.1); Platelet Count Result 231 k/mm3 (150-375); Red Blood Count 4.97 M/mm3 (4.2-5.4); White Blood Count 4.8 K/mm3 (4.5-10.0)
[2024-06-17 12:04] LABS: Add Urine Microscopic? NO; Appearance Urine Clear (Clear); Bilirubin Urine Negative (Negative); Blood Urine Negative (Negative); Color Urine Yellow (Yellow); Glucose Urine UA Negative (Negative); Ketones Urine Negative (Negative); Leukocyte Esterase Ur Negative LEU/UL (Negative); Nitrate Urine Negative (Negative); Protein Urine Negative (Negative); Specific Grav Ur 1.006 (1.001-1.035); Urobilinogen Urine 0.2 mg/dL (<2.0); pH Urine 7.5 (5.0-9.0)
[2024-06-17 12:15] LABS: Alanine Aminotransferase 26 U/L (6-35); Albumin Level 4.9 g/dL (3.5-5.1); Alkaline Phosphatase 100 U/L (38-126); Anion Gap 5 mmol/L (4-12); Aspartate Amino Transferase 28 U/L (14-36); Bilirubin,Total 0.7 mg/dL (0.2-1.3); Blood Urea Nitrogen 14 mg/dL (7-17); Calcium 9.4 mg/dL (8.4-10.2); Carbon Dioxide 26 mmol/L (22-30); Chloride 108 mmol/L (98-107); Estimated CRCL calculation 90 ml/min; Estimated Glomerular Filt Rate > 60; Glucose 83 mg/dL (65-110); Lipase 71 U/L (23-300); Sodium 139 mmol/L (137-145)
[2024-06-17 15:13] VITALS: BP 124/84; PULSE 84; RESP 16; O2SAT 99
== END 2024-06-17 15:14 | disposition home or self-care (01) ==
PROVIDERS: Emergency Provider Physician Assistant
DX: R10.11 Right upper quadrant pain (principal)
CPT/HCPCS: 36415; 74177; 76705; 80053; 81003; 81025; 83690; 85025; 99284; Q9967

== ENCOUNTER 2025-01-05 07:46 | Outpatient (CLI) | payer BC, SELFPAY ==
--- NOTE | ~2025-01-05 | US_ITS ---
Limited Abdominal Sonogram: Real-time sonographic imaging of the right upper quadrant was performed. Clinical History: Right upper quadrant pain Findings: The liver appears normal with no evidence of mass lesion or bile duct dilatation. Main por mariel vein demonstrates normal direction of flow. The gallbladder is well distended, and appears normal with no evidence of gallstone or wall thickening. The common bile duct measures 3 mm. The visualize d pancreas, aorta, and IVC are unremarkable. Right kidney unremarkable. Impression: No significant abnormality seen. Reviewed, dictated and finalized at location M. Impression: No significant abnormality seen.
== END 2025-01-05 07:47 | disposition home or self-care (01) ==
LOC: MICIMG 07:47
PROVIDERS: PCP Nurse Practitioner; Visit Provider Nurse Practitioner
DX: R10.11 Right upper quadrant pain (principal)
CPT/HCPCS: 76705

== ENCOUNTER 2025-04-07 09:24 | Outpatient (CLI) | payer BC, SELFPAY ==
--- NOTE | ~2025-04-07 | US_ITS ---
EXAMINATION: US OB <= 14 weeks fetus DATE: 04/07/2025 09:48 INDICATION: Uncertain dating of during first trimester TECHNIQUE: Real-time pelvic ultrasound utilizing transabdominal probe was performed. The interpreting radiologist was not present for the study. COMPARISON: None. FINDINGS: The uterus measures 10.0 x 6.2 x 7.5 cm. There is an intrauterine gestational sac. A yolk sac and pole are identified. The crown rump length measures 2.2 cm, which correlates with an estimated gestational age of 8 weeks and 6 days. heart motion is identified measuring 167 beats per minute (bpm) by M-mode Doppler. The right ovary measures 3.3 x 2.5 x 2.3 cm. The left ovary measures 2.1 x 3.3 x 2.4 cm. 2.3 similar anechoic likely corpus luteum cyst in the left ovary. There is no free fluid in the pelvis. IMPRESSION: 1. Single living fetus with heart rate of 167 bpm. 2. Gestational age by ultrasound of 8 weeks 6 day(s) +/- 6 day(s) with ultrasound estimated date of delivery ([facility]) of 11/11/2025. Reviewed, dictated and finalized at location A. IMPRESSION: 1. Single living fetus with heart rate of 167 bpm. 2. Gestational age by ultrasound of 8 weeks 6 day(s) +/- 6 day(s) with ultraso und estimated date of delivery ([facility]) of 11/11/2025.
== END 2025-04-07 09:25 | disposition home or self-care (01) ==
DX: Z87.59 Personal history of other complications of pregnancy, childbirth and the puerperium (principal)
CPT/HCPCS: 76801

== ENCOUNTER 2025-06-20 12:42 | Outpatient (CLI) | payer BC, SELFPAY ==
--- NOTE | ~2025-06-20 | US_ITS ---
EXAMINATION: US OB /maternal detail DATE: 06/20/2025 13:19 INDICATION: anatomic survey. TECHNIQUE: Real-time ultrasound of the pelvis was performed. COMPARISON: Ultrasound 04/07/2025 FINDINGS: There is a single living fetus in vertex presentation. The placenta is anterior, 4.3 cm from the cervix. heart rate is 145 beats per minute (bpm). The cervical length is 3.6 cm on transabdominal images, which is normal. The amniotic fluid volume is subjectively normal. The following biometric data were obtained: Biparietal diameter (BPD): 4.9 cm; head circumference (HC): 18.1 cm; abdominal circumference (AC): 15.1 cm; femur length (FL): 3.2 cm. These measurements are concordant. Estimated weight is 334 g +/- 50 g, which correlates with the 84th percentile when 11/11/25 is used as estimated date of delivery. As single measurements, these parameters are each equal to the following estimated gestational ages: BPD: 20 weeks 6 days. HC: 20 weeks 4 days. AC: 20 weeks 2 days. FL: 19 weeks 6 days. estimated gestational age based solely on measurements from this exam is 20 weeks 3 days +/- 1 weeks 3 days. The cerebral ventricles, cerebellum, cisterna magna, nuchal fold, and spine are normal. The heart is normal. The diaphragm, stomach, kidneys, and bladder are normal. There are two umbilical arteries to yield a 3-vessel cord. The cord insertion is normal. IMPRESSION: 1. Single living fetus in vertex presentation. 2. Estimated weight is 334 g +/- 50 g, which correlates with the 84th percentile when 11/11/25 is used as estimated date of delivery. This date was set by ultrasound on 04/07/2025. 3. Normal anatomic survey. Reviewed, dictated and finalized at location E. ROL CENTER OPERATOR IMPRESSION: 1. Single living fetus in vertex presentation. 2. Estimated weight is 334 g +/- 50 g, which correlates with the 84th pe rcentile when 11/11/25 is used as estimated date of delivery. This date was set by ultrasound on 04/07/2025. 3. Normal anatomic survey.
== END 2025-06-20 12:43 | disposition home or self-care (01) ==
LOC: MICIMG 12:42
PROVIDERS: PCP Obstetrics & Gynecology Gynecology; Visit Provider Obstetrics & Gynecology Gynecology
DX: Z36.9 Encounter for antenatal screening, unspecified (principal); Z3A.00 Weeks of gestation of pregnancy not specified
CPT/HCPCS: 76805